=== PATIENT | male | born 1980 | race Hispanic/Latino ===

== ENCOUNTER 2017-03-29 09:49 | Outpatient (CLI) | payer SELFPAY | END 2017-03-29 09:50 | disposition home or self-care (01) | LOC: LABBT 09:49 | PROVIDERS: ATTEND Orthopaedic Surgery | DX: Z01.818 Encounter for other preprocedural examination (principal); S52.501A Unspecified fracture of the lower end of right radius, initial encounter for closed fracture ==

== ENCOUNTER 2019-11-07 16:48 | Emergency (ER) | payer OTHER ==
[2019-11-07] MEDS ORDERED: Ketorolac Tromethamine 30 MG/ML VIAL ONE (17:35)
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
--- NOTE | 2019-11-07 19:36 | RAD ---
LEFT SHOULDER: 11/07/19 Single view. A single external rotated AP view of the shoulder obtained. This is performed in follow-up to the [facility] ambar series earlier which did not include external rotated view. No evidence of fracture identified on this externally rotated view. AC joint is normally aligned. IMPRESSION: No evidence of fracture identified. POS: AGW
--- NOTE | 2019-11-08 12:10 | EKG ---
Test Reason : Blood Pressure : / mmHG Vent. Rate : 078 BPM Atrial Rate : 078 BPM P-R Int : 134 ms QRS Dur : 082 ms QT Int : 330 ms P-R-T Axes : 034 046 034 degrees QTc Int : 376 ms Normal sinus rhythm Minimal voltage criteria for LVH, may be normal variant Borderline ECG Confirmed by DAVID GUERRERO ([id number]), editorial writer TRENT AMEZQUITA ([id number]) on 11/08/2019 12:10:42 PM Referred By: Confirmed By:DAVID Munoz
== END 2019-11-07 20:03 | disposition home or self-care (01) ==
LOC: ERS 16:48
DX: M54.2 Cervicalgia (principal); M54.6 Pain in thoracic spine; M25.531 Pain in right wrist; M25.562 Pain in left knee; R07.9 Chest pain, unspecified; V49.9XXA Car occupant (driver) (passenger) injured in unspecified traffic accident, initial encounter
CPT/HCPCS: 71045; 72125; 93005; 96374; J1885

== ENCOUNTER 2021-06-15 07:35 | Emergency (ER) | payer SELFPAY ==
[2021-06-15] MEDS ORDERED: Meclizine HCl 25 MG TAB ONE (09:43)
[2021-06-15 10:19] LABS: #Eosinphils 0.1 thou/uL (0.0-0.7); #Lymphocytes 1.6 thou/uL (1.20-3.40); #Monocytes 0.4 thou/uL (0.11-0.59); #Neutrophils 6.2 thou/uL (1.40-6.50); %Basophils 0.4 % (0.0-1.0); %Eosinophils 1.3 % (0.0-10.0); %Lymphocytes 19.3 % (21.0-51.0); %Monocytes 4.6 % (0.0-10.0); %Neutrophils 74.3 % (42.0-75.0); Mean Corpuscular HGB CONC 30.8 g/dL (32.0-36.0); Mean Corpuscular Hemoglobin 27.9 pg (27.0-31.0); Mean Corpuscular Volume 90.6 fL (78.0-98.0); Platelet Count 373 thou/uL (130-400); RBC Distribution Width 11.3 % (11.5-14.5); Red Blood Cell (RBC) Count 5.39 mill/uL (4.70-6.10); White Blood Cell (WBC) Count 8.3 thou/uL (4.8-10.8)
[2021-06-15 10:40] LABS: ALT (SGPT) 28 U/L (8-55); AST (SGOT) 19 U/L (5-34); Albumin 4.2 g/dL (3.5-5.0); Alkaline Phosphatase 90 U/L (40-110); Anion Gap 10 mmol/L (10-20); BUN (Urea Nitrogen) 15 mg/dL (8.9-20.6); Bilirubin, Total 0.3 mg/dL (0.2-1.2); Calc. Creatinine Clearance 0 mL/min (70-130); Calcium 9.4 mg/dL (7.8-10.44); Carbon Dioxide 26 mmol/L (22-29); Chloride 104 mmol/L (98-107); Globulin 3.7 g/dL (2.4-3.5); Glucose 113 mg/dL (70-105); Potassium 4.2 mmol/L (3.5-5.1); Protein, Total 7.9 g/dL (6.0-8.3); Sodium 136 mmol/L (136-145)
== END 2021-06-15 11:36 | disposition home or self-care (01) ==
LOC: ERS 07:35
DX: R42 Dizziness and giddiness (principal)
CPT/HCPCS: 36415; 70450; 80053; 85025; 93005